=== PATIENT | female | born 1965 | race Caucasian/White ===

== ENCOUNTER 2022-08-10 16:36 | Outpatient (CLI) | payer OTHER, SELFPAY ==
--- OUTSIDE RECORDS SUMMARY | 2022-08-10 08:13 | XMS_ITS | Clinical Summary ---
:1965 Author Organization [email or web address] [facility] [place] [address] Care Team Providers Name Role Phone Hans Umaña MD Primary Care Provider Allergies No known active allergies Medications Medication Sig Dispensed Refills Start Date End Date Status triamterene-hydrochlor Take 1 capsule by 0 4 Active othiazide, 37.5-25 mg, mouth every (DYAZIDE) 37.5-25 mg morning. capsule atenolol (TENORMIN) 25 Take 1 tablet by 0 12/17/2013 Active mg tablet mouth once daily. Active Problems Problem Noted Date Displacement of lumbar intervertebral disc without mye lopathy 12/17/2013 Overview: left L4-5 disk bulge with annular tear Lumbar facet arthropathy 12/17/2013 Social History Tobacco Use Types Packs/Day Years Used Date Never Smoker Tobacco Cessation: Counseling Given: Yes Alcohol Use Standard Drinks/Week Comments Not Asked 0 (1 standard drink = 0.6 oz pure alcoho l) Sex Assigned at Date Recorded Not on file Obstetrics History Last Filed Vital Signs Vital Sign Reading Time Taken Comments Blood Pressure 131/85 12/17/2013 8:01 AM BUILDING MATERIALS SALES ATTENDANT Pulse 65 12/17/2013 8:01 AM BUILDING MATERIALS SALES ATTENDANT Temperature 37.1 ??C (98.7 ??F) 12/17/2013 8:01 AM BUILDING MATERIALS SALES ATTENDANT Respiratory Rate - - Oxygen Saturation 98% 12/17/2013 8:01 AM BUILDING MATERIALS SALES ATTENDANT Inhaled Oxygen Concentration - - Weight 64.9 kg (143 lb) 12/17/2013 8:01 AM BUILDING MATERIALS SALES ATTENDANT Height 166.4 cm (5' 5.5) 12/17/2013 8:01 AM BUILDING MATERIALS SALES ATTENDANT Body Mass Index 23.43 12/17/2013 8:01 AM BUILDING MATERIALS SALES ATTENDANT Plan of Treatment Health Maintenance Due Date Last Done Comments COVID-19 vaccine series (#1) 1965 Tdap 01/22/1976 Depression screening for age 12+ 1977 BMI (ht and wt on same day) for 1983 age 18+ Hepatitis C screening for age 0301/21/1983 18-79 Tetanus booster 1985 Colonoscopy through age 75 2010 Lipids for age 45-75 2010 Mammogram for age 45-75 2010 Zoster (shingles) series for age 0301/21/2015 50+ (1 of 2) Influenza for age 50-64 07/19/2022 Pap test for age 21-65 11/03/2024 11/03/2021, 11/03/2021, 06/28/2020, Additional history exists Results Not on filefrom Last 3 Months Care Teams Trap Operator Relationship Specialty Start Date End Date Hans Umaña MD PCP - General 11/24/13
[2022-08-10 09:42] LABS: Albumin* 4.8 g/dL (3.3-5.0)
[2022-08-10 09:43] LABS: Chloride* 104 mmol/L (96-114); Potassium* 4.3 mmol/L (3.6-5.1); Sodium* 139 mmol/L (135-149)
[2022-08-10 09:45] LABS: Alkaline Phosphatase* 74 U/L (40-150); Aspartate Amino Transferase* 31 U/L (12-35); Bilirubin Total* 0.7 mg/dL (0.1-1.5); Blood Urea Nitrogen* 14 mg/dL (7-30); Carbon Dioxide* 27 mmol/L (20-32); Cholesterol* 214 mg/dL (90-199); Creatinine* 0.6 mg/dL (0.5-1.5); Estimated Glomerular Filt Rate 105 ml/min; Total Protein* 7.4 g/dL (6.0-8.3)
[2022-08-10 09:46] LABS: Alanine Aminotransferase* 47 U/L (4-35); Calcium* 10.3 mg/dL (8.4-10.6); Glucose* 111 mg/dL (60-115); HDL Cholesterol* 83 mg/dL (>=50); LDL Cholesterol Calculated 121 mg/dL (<100); Triglycerides* 50 mg/dL (40-149)
== END 2022-08-10 16:37 | disposition home or self-care (01) ==
PROVIDERS: PCP Internal Medicine; Visit Provider Internal Medicine
DX: E78.5 Hyperlipidemia, unspecified (principal); Z13.9 Encounter for screening, unspecified
CPT/HCPCS: 80053; 80061

== ENCOUNTER 2022-11-21 14:39 | Outpatient (CLI) | payer OTHER, SELFPAY ==
--- NOTE | 2022-11-21 15:00 | CRLHL7_ITS ---
For Patients: As a result of the Century Cures Act, medical imaging exams and procedure reports are released immediately into your electronic medical record. You may view this report before your referring provider. If you have questions, please contact your health care provider. BILATERAL SCREENING MAMMOGRAM WITH COMPUTER-AIDED DETECTION AND TOMOSYNTHESIS TECHNIQUE: CC and MLO views were obtained. These mammographic images have been obtained using full-field digital technique. These mammographic images were interpreted with the benefit of computer-aided detection. Breast Tomosynthesis was used in this interpretation. COMPARISON FILM: 11/09/21, 04/25/20, 01/14/19. FINDINGS: There are scattered areas of fibroglandular density IMPRESSION: There is no radiographic evidence for malignancy. ASSESSMENT: BI-RADS Category 1: Negative RECOMMENDATION: Routine screening mammogram in 1 year. A lay language report of this examination will be provided to the patient. Silvio Navas M.D. Diagnostic Radiologist [email or web address] KEYSHAWN/Dictated by: Silvio Navas MD @ 11/22/2022 9:37:00 AM (Electronically Signed)
== END 2022-11-21 14:40 | disposition home or self-care (01) ==
LOC: MAMMO 14:40
PROVIDERS: PCP Internal Medicine; Visit Provider Internal Medicine
DX: Z12.31 Encounter for screening mammogram for malignant neoplasm of breast (principal)
CPT/HCPCS: 77063; 77067

== ENCOUNTER 2024-02-25 08:49 | Outpatient (CLI) | payer BC, SELFPAY ==
--- OUTSIDE RECORDS SUMMARY | 2024-02-25 08:51 | XMS_ITS | Clinical Summary ---
Author Name Unknown Organization [employer] [facility] Address [place], [place] [address] Care Team Providers Care Marble Chip Terrazzo Worker Name Role Phone Hans Umaña MD Primary Care Provider Allergies No known active allergies Medications Medication Sig Dispensed Refills Start Date End Date Status triamterene-hydrochlor othiazide, 37.5-25 mg, (DYAZIDE) 37.5-25 mg capsule Take 1 capsule by mouth every morning. 0 12/17/2013 Active atenolol (TENORMIN) 25 mg tablet Take 1 tablet by mouth once daily. 0 12/17/2013 Active Active Problems Problem Noted Date Diagnosed Date Displacement of lumbar inter vertebral disc without myelopathy 12/17/2013 Overview: left L4-5 disk bulge with annular tear Lumbar facet arthropathy 12/17/2013 Social History Tobacco Use Types Packs/Day Years Used Date Smoking Tobacco: Never Tobacco Cessation:Counseling Given: Yes Alcohol Use Standard Drinks/Week Comments Not Asked 0 (1 standard drink = 0.6 oz pur e alcohol) Sex and Gender Information Value Date Recorded Sex Assigned at Not on file Gender Identity Not on file Sexual Orientation Not on file Obstetrics History Last Filed Vital Signs Vital Sign Reading Time Taken Comments Blood Pressure 131/85 12/17/2013 8:01 AM AIRCRAFT CHARTER DISPATCHER Pulse 65 12/17/2013 8:01 AM AIRCRAFT CHARTER DISPATCHER Temperature 37.1 ??C (98.7 ??F) 12/17/2013 8:01 AM CS T Respiratory Rate - - Oxygen Saturation 98% 12/17/2013 8:01 AM AIRCRAFT CHARTER DISPATCHER Inhaled Oxygen Concentration - - Weight 64.9 kg (143 lb) 12/17/2013 8:01 AM AIRCRAFT CHARTER DISPATCHER Height 166.4 cm (5' 5.5) 12/17/2013 8:01 AM AIRCRAFT CHARTER DISPATCHER Body Mass Index 23.43 12/17/2013 8:01 AM AIRCRAFT CHARTER DISPATCHER Plan of Treatment Health Maintenance Due Date Last Done Comments Tdap 01/22/1976 Depression screening for age 12+ 1977 HIV for age 15-65 01/22/1980 BMI (ht and wt on same day) for age 18+ 1983 Hepatitis C screening for age 18-79 1983 Tetanus booster 1985 Colonoscopy through age 75 2010 Lipids for age 45-75 2010 Mammogram for age 45-75 2010 Zoster (shingles) series for age 50+ (1 of 2) 2015 COVID-19 vaccine series (2022-24 season) 2023 Influenza for age 50-64 07/19/2024 Pap test for age 21-65 11/27/2025 , 11/27/2022, 11/03/2021, Additional history exists Pneumococcal series for age 6-64 Aged Out No longer eligible based on patient's age to complete this topic Procedures Procedure Name Priority Date/Time Associated Diagnosis Comments HPV THIN PREP Routine 11/27/2022 8:30 AM AIRCRAFT CHARTER DISPATCHER from Last 3 Months or Most Recently Relevant to Health Maintenance Results * HPV HIGH RISK (11/27/2022 8:30 AM AIRCRAFT CHARTER DISPATCHER) TYPE 16 Negative Negative 11/30/2022 5:34 AM AIRCRAFT CHARTER DISPATCHER [facility] TYPE 18 Negative Negative 11/30/2022 5:34 AM AIRCRAFT CHARTER DISPATCHER [facility] OTHER HIGH RISK TYPES Negative Negative 11/30/2022 5:34 AM AIRCRAFT CHARTER DISPATCHER [facility] Other (Cervical) 11/27/2022 8:30 AM AIRCRAFT CHARTER DISPATCHER 11/28/2022 12:45 PM AIRCRAFT CHARTER DISPATCHER [facility] - 11/30/2022 5:34 AM AIRCRAFT CHARTER DISPATCHER HPV types 16, 18, 31, 33, 35, 39, 45, 51, 52, 56, 58, 59, 66 and 68 DNA were undetectable or below the pre-set threshold. Methodology: Laisha Sangeetha 4800 HPV Test Syeda Montgomery MD [facility] [address] [place] [address], from Last 3 Months or Most Recently Relevant to Health Maintenance Care Teams Marble Chip Terrazzo Worker Relationship Specialty Start Date End Date Hans Uamña MD PCP - General 11/24/13
== END 2024-02-25 08:50 | disposition home or self-care (01) ==
PROVIDERS: PCP Internal Medicine; Visit Provider Internal Medicine
DX: I10 Essential (primary) hypertension (principal); Z13.220 Encounter for screening for lipoid disorders
CPT/HCPCS: 80053; 80061

== ENCOUNTER 2024-04-09 15:13 | Outpatient (CLI) | payer BC, SELFPAY ==
--- OUTSIDE RECORDS SUMMARY | 2024-04-09 15:16 | XMS_ITS | Clinical Summary ---
Author Organization [employer] [facility] Address [place], [place] [address] Care Team Providers Care Pocket Maker Name Role Phone Hans Umaña MD Primary Care Provider [phone] Allergies No known active allergies Medications Medication [...] Comments Blood Pressure 131/85 12/17/2013 8:01 AM POLITICAL ADVISOR Pulse 65 12/17/2013 8:01 AM POLITICAL ADVISOR Temperature 37.1 ??C (98.7 ??F) 12/17/2013 8:01 AM CS T Respiratory Rate - - Oxygen Saturation 98% 12/17/2013 8:01 AM POLITICAL ADVISOR Inhaled Oxygen Concentration - - Weight 64.9 kg (143 lb) 12/17/2013 8:01 AM POLITICAL ADVISOR Height 166.4 cm (5' 5.5) 12/17/2013 8:01 AM POLITICAL ADVISOR Body Mass Index 23.43 12/17/2013 8:01 AM POLITICAL ADVISOR Plan of Treatment Health Maintenance Due Date [...] HPV THIN PREP Routine 11/27/2022 8:30 AM POLITICAL ADVISOR from Last 3 Months or Most Recently Relevant to Health Maintenance Results * HPV HIGH RISK (11/27/2022 8:30 AM POLITICAL ADVISOR) TYPE 16 Negative Negative 11/30/2022 5:34 AM POLITICAL ADVISOR [facility] TYPE 18 Negative Negative 11/30/2022 5:34 AM POLITICAL ADVISOR [facility] OTHER HIGH RISK TYPES Negative Negative 11/30/2022 5:34 AM [facility] Other (Cervical) 11/27/2022 8:30 AM POLITICAL ADVISOR 11/28/2022 12:45 PM POLITICAL ADVISOR [facility] - 11/30/2022 5:34 AM POLITICAL ADVISOR HPV types 16, 18, 31, 33, 35, 39, 45, 51, 52, 56, 58, 59, 66 and 68 DNA were undetectable or below the pre-set threshold. Methodology: Laisha Sangeetha 4800 HPV Test Syeda Montgomery MD MICROBIOLO G[facility] [address] [place] [address], from Last 3 Months or Most Recently Relevant to Health Maintenance Care Teams Pocket Maker Relationship Specialty Start Date End Date Hans Umaña MD PCP - General 11/24/13
--- NOTE | 2024-04-09 15:20 | CRLHL7_ITS ---
For Patients: As a result of the Century Cures Act, medical imaging exams and procedure reports are released immediately into your electronic medical record. You may view this report before your referring provider. If you have questions, please contact your health care provider. BILATERAL SCREENING MAMMOGRAM WITH COMPUTER-AIDED DETECTION AND TOMOSYNTHESIS TECHNIQUE: CC and MLO views were obtained. These mammographic images have been obtained using full-field digital technique. These mammographic images were interpreted with the benefit of computer-aided detection. Breast Tomosynthesis was used in this interpretation. COMPARISON FILM: 11/21/22, 11/09/21, 04/25/20. FINDINGS: There are scattered areas of fibroglandular density. IMPRESSION: There is no radiographic evidence for malignancy. ASSESSMENT: BI-RADS Category 1: Negative RECOMMENDATION: Routine screening mammogram in 1 year. A lay language report of this examination will be provided to the patient. Silvio Navas M.D. Diagnostic Radiologist [email or web address] SP/Dictated by: Silvio Navas MD @ 04/10/2024 8:43:00 AM (Electronically Signed)
== END 2024-04-09 15:14 | disposition home or self-care (01) ==
PROVIDERS: PCP Internal Medicine; Visit Provider Internal Medicine
DX: Z12.31 Encounter for screening mammogram for malignant neoplasm of breast (principal)
CPT/HCPCS: 77063; 77067

== ENCOUNTER 2025-02-25 08:47 | Outpatient (CLI) | payer BC, SELFPAY | END 2025-02-25 08:48 | disposition home or self-care (01) | PROVIDERS: PCP Internal Medicine; Visit Provider Internal Medicine | DX: I10 Essential (primary) hypertension (principal); Z13.6 Encounter for screening for cardiovascular disorders | CPT/HCPCS: 80053; 80061 ==

== ENCOUNTER 2025-04-27 17:25 | Outpatient (CLI) | payer BC, SELFPAY ==
--- NOTE | 2025-04-27 17:40 | CRLHL7_ITS ---
For Patients: As a result of the Century Cures Act, medical imaging exams and procedure reports are released immediately into your electronic medical record. You may view this report before your referring provider. If you have questions, please contact your health care provider. INDICATION: BILATERAL SCREENING MAMMOGRAM, ASYMPTOMATIC 60Y/F COMPARISON: Baseline TECHNIQUE: Digital mammogram in CC and MLO projections including computer-aided detection (CAD) and tomosynthesis. BREAST COMPOSITION: There are scattered areas of fibroglandular density. FINDINGS: No suspicious findings. ASSESSMENT: BI-RADS 1 Negative RECOMMENDATION: Annual screening mammogram. A lay language report of this examination will be provided to the patient. Dictated by: Silvio Navas MD @ 04/28/2025 10:39:48 (Electronically Signed)
== END 2025-04-27 17:26 | disposition home or self-care (01) ==
LOC: MAMMO 17:26
PROVIDERS: PCP Internal Medicine; Visit Provider Internal Medicine
DX: Z12.31 Encounter for screening mammogram for malignant neoplasm of breast (principal)
CPT/HCPCS: 77063; 77067

== ENCOUNTER 2025-05-03 07:01 | Outpatient (CLI) | payer BC, SELFPAY ==
--- NOTE | 2025-05-03 07:15 | CRLHL7_ITS ---
For Patients: As a result of the Century Cures Act, medical imaging exams and procedure reports are released immediately into your electronic medical record. You may view this report before your referring provider. If you have questions, please contact your health care provider. EXAM: MRI OF THE RIGHT KNEE, WITHOUT CONTRAST CLINICAL INDICATION: Knee pain. PRIOR SURGERY: None reported. COMPARISON PLAIN FILMS: None available at time of interpretation. COMPARISON CROSS-SECTIONAL IMAGING STUDIES: None available at time of interpretation. TECHNICAL: Axial, sagittal and coronal T1, PD, PD FS and T2 FS images. FINDINGS: OSSEOUS STRUCTURES: No fracture, marrow edema or marrow replacement process. JOINT SPACE AND CAPSULE: Effusion: Large effusion extending above the field of view suprapatellar recess. Mild strandy intermediate signal synovitis or potentially hemorrhage in the suprapatellar recess with prominent suprapatellar plica. Joint Bodies: None seen. CRUCIATE LIGAMENTS: Anterior Cruciate Ligament: Normal. Posterior Cruciate Ligament: Normal. EXTENSOR MECHANISM: Distal Quadriceps Tendon: Normal. Patellar Tendon: Normal. Medial Patellar Retinaculum and Medial Patellofemoral Ligament: Normal. Lateral Patellar Retinaculum: Normal. Normal patellar alignment. No patella roxana. Normal trochlear depth. Normal lateral trochlear inclination. MEDIAL COLLATERAL LIGAMENT AND POSTEROMEDIAL CORNER COMPLEX: Medial Collateral Ligament: Normal. Medial Head of the Gastrocnemius and Semimembranosus Tendons: Normal. LATERAL COLLATERAL LIGAMENT COMPLEX AND POSTEROLATERAL CORNER COMPLEX: Fibular Collateral Ligament: Normal. Distal Biceps Femoris Tendon Complex: Normal. Iliotibial Band: Normal. Popliteus Tendon: Normal. Posterolateral Corner Capsule: Normal. MEDIAL COMPARTMENT: Medial Meniscus: Complex near full-thickness longitudinal marginal tear at the inner 3rd of the posterior horn into the margins of the diminutive route. Extrusion of the body with horizontal tear undersurface. Articular Cartilage: Grade 2 thinning most pronounced at the outer margin condyle and plateau. Some patchy edema at the outer margin of the plateau. LATERAL COMPARTMENT: Lateral Meniscus: Normal size and morphology without tear. Articular Cartilage: Articular surfaces appear smooth without focal articular cartilage defect or subchondral marrow changes. PATELLOFEMORAL COMPARTMENT: Articular Cartilage: Articular surfaces appear smooth without focal articular cartilage defect or subchondral marrow changes. PERIARTICULAR SOFT TISSUES: Popliteal Cyst: No significant popliteal cyst. Periarticular Cysts or Ganglia: None. Bursae: No prepatellar, superficial infrapatellar, deep infrapatellar, pes anserinus or semimembranosus/MCL bursitis. Musculature: No muscle atrophy or muscle edema. Subcutaneous and Soft Tissues: No subcutaneous or soft tissue mass, edema or fluid collection. Neurovascular Structures: Normal. IMPRESSION: 1. Complex tearing medial meniscus. 2. Large joint effusion with synovitis or potentially hemorrhage suprapatellar recess. 3. Mild degenerate medial compartment. Dictated by Homer Haas MD @ 05/03/2025 3:00:28 PM (Electronically Signed)
== END 2025-05-03 07:02 | disposition home or self-care (01) ==
LOC: MRI 07:02
PROVIDERS: PCP Internal Medicine; Visit Provider Internal Medicine
DX: M25.561 Pain in right knee (principal); S83.231A Complex tear of medial meniscus, current injury, right knee, initial encounter; M25.461 Effusion, right knee
CPT/HCPCS: 73721

== ENCOUNTER 2025-06-16 09:47 | Day surgery (SDC) | payer BC, SELFPAY ==
[2025-06-16] VITALS (12 sets, daily range): BP systolic 105–144; BP diastolic 67–91; PULSE 46–66; RESP 12–24; TEMP 36.6–37; O2SAT 94–99; BMI 26.6
--- NOTE | 2025-06-16 10:06 | W.PM.H&PU ---
History & Physical Update History & Physical Update H&P Reviewed and patient assessed: No changes noted
[2025-06-16] MEDS: LACTATED RINGERS 1000 ML 1,000 ML 100 ML IV (10:07)
[2025-06-16] MEDS: SODIUM CHLORIDE 0.9 % (FLUSH) 10 ML SYRINGE IVF (10:07)
[2025-06-16] MEDS: ROPIVACAINE 0.5% 30 ML 150 MG INJECTION (10:55)
--- NOTE | 2025-06-16 10:56 | P.ORPRC_ITS ---
Procedure Note Date of procedure: 06/16/25 Procedure: PREOPERATIVE DIAGNOSIS: 1. Right knee medial meniscus tear POSTOPERATIVE DIAGNOSIS: 1. Right knee medial meniscus tear PROCEDURE: 1. Right knee arthroscopic partial medial meniscectomy SURGEON: Siddharth Petit M.D. DUMP TRUCK OPERATOR: Shine Lazo PA-C. Of note, an nurse's assistant was critical for this case to aid in patient positioning, knee manipulation, instrument exchange, and closure. ANESTHESIA: Spinal EBL: 2ml TOURNIQUET: 30 minutes at 250 torr COMPLICATIONS: None evident INDICATIONS: The patient is a pleasant 60-year-old female who has experienced right knee pain particularly with any twisting or turning. Physical exam was concerning for medial meniscus tear, this was confirmed on MRI. Additionally, attempted nonoperative management has been tried, and failed. Thus, surgery was recommended. FINDINGS: Complex tear of the posterior horn to midbody medial meniscus. Intact posterior root. Intact lateral meniscus. ACL and PCL intact. 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 Grade 2 chondromalacia patellofemoral compartment. Grade 1 chondromalacia lateral compartment. DESCRIPTION OF PROCEDURE: After a thorough discussion of risks, benefits, and alternatives, the patient was brought to the operating room and placed upon the operating table. Induction of anesthesia was undertaken as previously noted. 1 g IV Ancef was administered within 1 hr of incision preoperatively. Appropriate time-out was performed identifying proper patient, site, and procedure. The right lower extremity was prepped and draped in the appropriate sterile fashion using ChloraPrep. The limb was exsanguinated and tourniquet inflated. Anterolateral and anteromedial portals were established with an 11 blade, and a diagnostic arthroscopy was performed. This identified the findings as noted above. Following the diagnostic arthroscopy, a partial medial menisectomy was performed with the combination of basket forceps and a motorized shaver. Following this, the meniscus was re-probed and found to be stable. Approximately 25-33 % of the overall meniscus required resection. At this stage, the shaver was reinserted into the suprapatellar pouch and all remaining meniscal debris was evacuated. Instruments were removed, excess fluid was drained, and closure performed with 4-0 Monocryl with Steri-Strips. Dressings were applied, the tourniquet deflated, and the patient was awoken from anesthesia and transferred to the PACU in stable condition. PLAN: 1. Weightbear as tolerated operative extremity. Crutch / walker ambulation assistance PRN. 2. Ice, acetominophen and/or ibuprofen, and Oxycodone for pain as needed. 3. Knee range of motion and quad sets/straight leg raise regularly 4. Follow up with PA visit in 1-2 weeks for a wound check and possibly to initiate physical therapy.
[2025-06-16] MEDS: METOCLOPRAMIDE HCL 5 MG/ML INJ 10 MG IVP (11:07)
--- NOTE | 2025-06-16 11:17 | P.ANES_ITS ---
Anesthesia Charges Start Date/Time Anesthesia Start Date: 06/16/25 Anesthesia Start Time: 10:16 Stop Date/Time Anesthesia Stop Date: 06/16/25 Anesthesia Stop Time: 11:10 Coding CPT Codes CPT Codes: ANESTH KNEE JOINT SURGERY - 62617 ([id number]) P2 - PATIENT W/MILD SYST DISEASE, QZ - BROKERAGE CLERK SVC W/O CYCLE ANALYST BY
--- NOTE | 2025-06-16 11:17 | W.ANESCHARGE ---
Anesthesia Charges Start Date/Time Anesthesia Start Date: 06/16/25 Anesthesia Start Time: 10:16 Stop Date/Time Anesthesia Stop Date: 06/16/25 Anesthesia Stop Time: 11:10 Coding CPT Codes CPT Codes: ANESTH KNEE JOINT SURGERY - 07258 ([id number]) P2 - PATIENT W/MILD SYST DISEASE, QZ - CHIEF TECHNICIAN X RAY SVC W/O STABBER BY
--- NOTE | 2025-06-16 11:42 | SUR.PHASEI ---
patient met discharge criteria per anesthesia
== END 2025-06-16 13:44 | disposition home or self-care (01) ==
LOC: OR 09:47
PROVIDERS: PCP Internal Medicine; Visit Provider Orthopaedic Surgery Sports Medicine
PROC: (CPT 29870; principal; 2025-06-16 10:30)
DX: S83.231A Complex tear of medial meniscus, current injury, right knee, initial encounter (principal); M94.261 Chondromalacia, right knee
CPT/HCPCS: 29881; 01400; J0690; J1100; J2250; J2405; J2704; J2765; J2795; J3010; J3490; J7120